=== PATIENT | female | born 1985 | race Caucasian/White ===

== ENCOUNTER 2018-05-07 17:02 | Emergency (ER) | payer OTHER ==
--- NOTE | 2018-05-07 17:43 | ED Physician Documentation ---
PD HPI ABD PAIN - Stated complaint Stated Complaint: CHEST/ABD PX - Chief complaint Chief Complaint: Abd Pain - History obtained from History obtained from: Patient - History of Present Illness Timing - onset: How many hours ago (few), Today Timing - duration: Hours Timing - details: Abrupt onset, Still present Quality: Cramping, Aching, Pain Location: RUQ, Epigastric Radiation: Upper back Improved by: No: Vomiting Worsened by: Eating Associated symptoms: Nausea, Vomiting, Chest pain (pain goes up into lower substernal area.). No: Fever, Diarrhea, Melena Similar symptoms before: No diagnosis (evaluated with prior U/S and labs, saw GI and had HIDA scan which showed diminished function (40%), and so consider GB spasms/sludging. Also Rx with [id number].) Review of Systems Constitutional: denies: Fever, Chills Nose: denies: Rhinorrhea / runny nose, Congestion Throat: denies: Sore throat Cardiac: denies: Palpitations Respiratory: denies: Dyspnea, Cough GI: reports: Abdominal Pain, Nausea, Vomiting. denies: Abdominal Swelling, Diarrhea : denies: Dysuria, Frequency, Discharge Skin: denies: Rash Neurologic: reports: Generalized weakness. denies: Near syncope PD PAST MEDICAL HISTORY - Past Medical History Cardiovascular: None Respiratory: None Neuro: None Endocrine/Autoimmune: None - Present Medications Home Medications: Ambulatory Orders Medication Instructions Recorded Confirmed Etonogestrel [Nexplanon] 05/07/18 HYDROcod/ACETAM 5/325 [[place] 5/325] 1 tab PO Q6H PRN #12 tablet 05/07/18 Ondansetron Odt [Zofran] 4 mg TL Q6H PRN #15 tablet 05/07/18 - Allergies Allergies/Adverse Reactions: Allergies Allergy/AdvReac Type Severity Reaction Status Date / Time cefaclor [From [facility]] Allergy Unknown Verified 05/07/18 17:12 PD ED PE NORMAL - Vitals Vital signs reviewed: Yes - General General: Alert and oriented X 3, Well developed/nourished, Other (appears in pain and nauseated., holding emesis bag. ) - HEENT HEENT: PERRL (nonicteric), Ears normal, Pharynx benign - Neck Neck: Supple, no meningeal sign, No adenopathy - Cardiac Cardiac: RRR, No murmur - Respiratory Respiratory: Clear bilaterally - Abdomen Abdomen: Normal bowel sounds, Soft, Non distended, No organomegaly, Other ( tender with guarding epigastric and RUQ areas. Lower abd not tender. ) - Female Female : Deferred - Rectal Rectal: Deferred - Back Back: No CVA TTP - Derm Derm: Normal color, Warm and dry - Extremities Extremities: No deformity, No tenderness to palpate, Normal ROM s pain, No edema , No calf tenderness / cord - Neuro Neuro: Alert and oriented X 3, No motor deficit, Normal speech Results - Vitals Vitals: Vital Signs - 24 hr 05/07/18 05/07/18 17:06 20:53 Temperature 36.1 C L Heart Rate 72 86 Respiratory 16 16 Rate Blood Pressure 127/84 H 99/69 O2 Saturation 98 99 Oxygen O2 Source Room air - Labs Labs: Laboratory Tests 05/07/18 05/07/18 05/07/18 17:25 17:25 17:45 WBC 10.9 H RBC 4.48 Hgb 12.5 Hct 38.3 MCV 85.5 MCH 27.9 MCHC 32.6 RDW 13.4 Plt Count 225 MPV 9.4 Neut # (Auto) 8.8 H Lymph # (Auto) 1.3 L [place] # (Auto) 0.7 Eos # (Auto) 0.0 Baso # (Auto) 0.0 Absolute Nucleated RBC 0.01 Nucleated RBC % 0.1 Sodium 138 Potassium 3.9 Chloride 105 Carbon Dioxide 27 Anion Gap 6.0 BUN 20 Creatinine 0.9 Estimated GFR (MDRD) 73 L Glucose 86 POC Whole Bld Glucose Calcium 9.1 Total Bilirubin 1.4 H AST 91 H ALT 121 H Alkaline Phosphatase 133 H Total Protein 8.2 Albumin 4.0 Globulin 4.2 Albumin/Globulin Ratio 1.0 Lipase 32 Urine Color YELLOW Urine Clarity CLEAR Urine pH 6.0 Ur Specific [place] >=1.030 H Urine Protein TRACE Urine Glucose (UA) NEGATIVE Urine Ketones 15 H Urine Occult Blood NEGATIVE Urine Nitrite NEGATIVE Urine Bilirubin SMALL H Urine Urobilinogen 0.2 (NORMAL) Ur Leukocyte Esterase NEGATIVE Ur Microscopic Review NOT INDICATED Urine Culture Comments NOT INDICATED Urine HCG, Qual NEGATIVE 05/07/18 20:58 WBC RBC Hgb Hct MCV MCH MCHC RDW Plt Count MPV Neut # (Auto) Lymph # (Auto) [place] # (Auto) Eos # (Auto) Baso # (Auto) Absolute Nucleated RBC Nucleated RBC % Sodium Potassium Chloride Carbon Dioxide Anion Gap BUN Creatinine Estimated GFR (MDRD) Glucose POC Whole Bld Glucose 82 Calcium Total Bilirubin AST ALT Alkaline Phosphatase Total Protein Albumin Globulin Albumin/Globulin Ratio Lipase Urine Color Urine Clarity Urine pH Ur Specific [place] Urine Protein Urine Glucose (UA) Urine Ketones Urine Occult Blood Urine Nitrite Urine Bilirubin Urine Urobilinogen Ur Leukocyte Esterase Ur Microscopic Review Urine Culture Comments Urine HCG, Qual - Rads (name of study) RUQ US Radiology: Prelim report reviewed (normal wall thickness and CBD diameter. No acute process. ) PD MEDICAL DECISION MAKING - ED course Complexity details: considered differential (she says had HIDA showing diminished function (40%) and no history of stones, but has bump on LFTs/alk phos on bloods so wanted to ensure no bile duct enlargement nor GB wall thickening. This was okay on U/S. Consider if she had some ductal sludging, now resolved. And she is feeling better. Consider gastritis as well with mild LFT bump due to vomiting. ), d/w patient - Sepsis Event Vital Signs: Vital Signs - 24 hr 05/07/18 05/07/18 17:06 20:53 Temperature 36.1 C L Heart Rate 72 86 Respiratory 16 16 Rate Blood Pressure 127/84 H 99/69 O2 Saturation 98 99 Oxygen O2 Source Room air Departure - Departure Disposition: 01 Home, Self Care Clinical Impression: Abdominal pain Qualifiers: Abdominal location: upper abdomen, unspecified Qualified Code(s): R10.10 - Upper abdominal pain, unspecified Condition: Stable Record reviewed to determine appropriate education?: Yes Instructions: ED Abdominal Pain Gallstone Poss, ED Gastritis Follow-Up: [facility] [Provider Group] Prescriptions: HYDROcod/ACETAM 5/325 [[place] 5/325] 1 tab PO Q6H PRN #12 tablet PRN Reason: Pain Ondansetron Odt [Zofran] 4 mg TL Q6H PRN #15 tablet PRN Reason: Nausea / Vomiting Comments: I think your stomach pain may be mostly an irritated stomach called gastritis. Take the acid reducing medicine you have at home regularly for the next 1-2 weeks. You can add Maalox or Mylanta if needed for pains. Ondansetron if needed for nausea. Add Tylenol or hydrocodone if needed for pain. Alternatively your pain may be coming from gallbladder spasms but on ultrasound there is no stones nor wall thickening nor signs of inflammation of it at this time. It still could have had a spasm episode. Follow-up with your primary care and/or GI regarding further treatments. Forms: Activity restrictions Discharge Date/Time: 05/07/18 21:39
[2018-05-07 17:51] LABS: GLUCOSE, URINE (UA) NEGATIVE (NEGATIVE); KETONES,URINE (UA) 15 mg/dL (NEGATIVE); LEUKOCYTE ESTERASE, URINE NEGATIVE (NEGATIVE); NITRITE,URINE NEGATIVE (NEGATIVE); OCCULT BLOOD,URINE NEGATIVE (NEGATIVE); PROTEIN,URINE TRACE mg/dL (NEGATIVE); UROBILINOGEN,URINE 0.2 (NORMAL) E.U./dL (NORMAL)
[2018-05-07] MEDS ORDERED: LIDOCAINE VISCOUS 2% 15 ML UDC MM STA (18:00)
[2018-05-07] MEDS ORDERED: KETOROLAC 60 MG/2 ML VIAL IVP STA (18:00)
[2018-05-07] MEDS ORDERED: ONDANSETRON 4 MG/2 ML VIAL IVP STA ×2 (18:00→20:54)
[2018-05-07] MEDS ORDERED: SODIUM CHLORIDE 0.9% 1,000 ML IV ONE (18:00)
[2018-05-07] MEDS ORDERED: MAG HYDROX/AL HYDROX/SIMETH 30 ML UDC PO STA (18:00)
[2018-05-07] MEDS ORDERED: FAMOTIDINE 20 MG/50 ML 50 ML IV ONE (18:01)
[2018-05-07 18:03] LABS: BILIRUBIN,URINE SMALL (NEGATIVE); CLARITY,URINE CLEAR (CLEAR); HCG UR QUAL NEGATIVE; ICTOTEST,URINE POSITIVE
[2018-05-07 18:39] LABS: BASOPHILS % (AUTO) 0.2 %; EOSINOPHILS % (AUTO) 0.2 %; HGB - HEMOGLOBIN 12.5 g/dL (12.0-16.0); LYMPHOCYTES # (AUTO) 1.3 10^3/uL (1.5-3.5); LYMPHOCYTES % (AUTO) 12.3 %; MEAN CORPUSCULAR HEMOGLOBIN 27.9 pg (27.0-31.0); MEAN CORPUSCULAR HGB CONC 32.6 g/dL (32.0-36.0); MEAN CORPUSCULAR VOLUME 85.5 fL (81.0-99.0); MEAN PLATELET VOLUME 9.4 fL (7.9-10.8); MONOCYTES # (AUTO) 0.7 10^3/uL (0.0-1.0); MONOCYTES % (AUTO) 6.5 %; NEUTROPHILS # (AUTO) 8.8 10^3/uL (1.5-6.6); NEUTROPHILS % (AUTO) 80.8 %; PLT - PLATELET COUNT 225 10^3/uL (130-450); RED BLOOD COUNT 4.48 10^6/uL (4.20-5.40); RED CELL DISTRIBUTION WIDTH 13.4 % (12.0-15.0); WHITE BLOOD COUNT 10.9 x10^3/uL (4.8-10.8)
[2018-05-07 18:40] LABS: BILIRUBIN,TOTAL 1.4 mg/dL (0.2-1.0); CALCIUM 9.1 mg/dL (8.5-10.3); CREATININE 0.9 mg/dL (0.4-1.0); TOTAL PROTEIN 8.2 g/dL (6.7-8.2)
[2018-05-07 20:53] VITALS: BP 99/69
[2018-05-07] MEDS ORDERED: HYDROcod/ACET 5/325 Prepack 4 PO STA (20:54)
[2018-05-07] MEDS ORDERED: ONDANSETRON ODT 4 MG Prepack 2 TL PRN (20:54)
--- NOTE | 2018-05-08 07:30 | Ultrasound Report ---
Procedure Date: 05/07/2018 Accession Number: [id number] / [id number] Procedure: US - Abdomen Limited CPT Code: FULL RESULT: EXAM: ABDOMEN ULTRASOUND LIMITED, RUQ EXAM DATE: 05/07/2018 08:39 PM. CLINICAL HISTORY: Upper abdominal pain. COMPARISON: None. TECHNIQUE: Real-time scanning was performed with static images obtained. FINDINGS: Liver: Normal in size and echotexture. The liver measures 15.0 cm. Main portal vein flow: Hepatopetal. Gallbladder: The gallbladder wall is borderline thickened. There is no gallstones, pericholecystic fluid, or positive sonographic Barrios sign. Biliary System: CBD measures 4 mm. No intrahepatic or extrahepatic ductal dilatation. Other: None. IMPRESSION: No acute intra-abdominal abnormality definitively seen including no definitive evidence for cholecystitis or biliary dilation. RADIA
== END 2018-05-07 21:39 | disposition home or self-care (01) ==
LOC: ED 17:02
DX: R10.11 Right upper quadrant pain (principal)
CPT/HCPCS: 36415; 76705; 80053; 81003; 81025; 83690; 85025; 93005; 96365; 96375; 96376; 99283; A9270; 81001; 87086

== ENCOUNTER 2018-05-09 16:20 | Day surgery (SDC) | payer OTHER ==
[~2018-05-09 16:20] MED LIST: DEXAMETHASONE 4 MG/ML VIAL IVP ONE; GLYCOPYRROLATE 1 MG/5 ML VIAL IVP ONE; KETOROLAC 30 MG/ML VIAL IVP ONE; LIDOCAINE-MPF 2% 5 ML VIAL IM ONE; MIDAZOLAM 2 MG/2 ML VIAL IVP ONE; NEOSTIGMINE 1 MG/1 ML 10 ML MDV IVP ONE; ONDANSETRON 4 MG/2 ML VIAL IVP ONE; PROPOFOL 200 MG/20 ML VIAL IVP ONE; ROCURONIUM 50 MG/5 ML VIAL IVP ONE; fentaNYL 100 MCG/2 ML VIAL IVP ONE
[2018-05-09 17:13] LABS: BASOPHILS % (AUTO) 0.5 %; EOSINOPHILS # (AUTO) 0.1 10^3/uL (0.0-0.7); EOSINOPHILS % (AUTO) 1.7 %; HGB - HEMOGLOBIN 12.5 g/dL (12.0-16.0); LYMPHOCYTES # (AUTO) 1.7 10^3/uL (1.5-3.5); MEAN CORPUSCULAR HGB CONC 32.8 g/dL (32.0-36.0); MEAN CORPUSCULAR VOLUME 85.2 fL (81.0-99.0); MEAN PLATELET VOLUME 9.2 fL (7.9-10.8); MONOCYTES # (AUTO) 0.5 10^3/uL (0.0-1.0); MONOCYTES % (AUTO) 8.2 %; NEUTROPHILS # (AUTO) 3.4 10^3/uL (1.5-6.6); NEUTROPHILS % (AUTO) 59.6 %; PLT - PLATELET COUNT 221 10^3/uL (130-450); RED BLOOD COUNT 4.46 10^6/uL (4.20-5.40); RED CELL DISTRIBUTION WIDTH 13.1 % (12.0-15.0); WHITE BLOOD COUNT 5.7 x10^3/uL (4.8-10.8)
[2018-05-09 17:26] LABS: ALBUMIN 3.9 g/dL (3.2-5.5); BILIRUBIN,TOTAL 3.7 mg/dL (0.2-1.0); CREATININE 0.7 mg/dL (0.4-1.0); TOTAL PROTEIN 7.9 g/dL (6.7-8.2)
[2018-05-09 17:40] LABS: HCG,QUALITATIVE BLOOD NEGATIVE
[2018-05-09 19:08] LABS: GLUCOSE, URINE (UA) NEGATIVE (NEGATIVE); KETONES,URINE (UA) NEGATIVE (NEGATIVE); LEUKOCYTE ESTERASE, URINE NEGATIVE (NEGATIVE); NITRITE,URINE NEGATIVE (NEGATIVE); OCCULT BLOOD,URINE NEGATIVE (NEGATIVE); PROTEIN,URINE NEGATIVE (NEGATIVE); UROBILINOGEN,URINE 2 E.U./dL (NORMAL)
[2018-05-09 19:11] LABS: BILIRUBIN,URINE MODERATE (NEGATIVE); CLARITY,URINE CLEAR (CLEAR); HCG UR QUAL NEGATIVE; ICTOTEST,URINE POSITIVE
[2018-05-09] MEDS ORDERED: SODIUM CHLORIDE 0.9% 1,000 ML IV ONE (19:15)
[2018-05-09] MEDS ORDERED: ONDANSETRON 4 MG/2 ML VIAL IVP STA (19:15)
[2018-05-09] MEDS ORDERED: HYDROmorphone 1 MG/ML CARPUJECT IVP STA ×2 (19:16→22:12)
[2018-05-09] MEDS ORDERED: IOPAMIDOL-300 50 ML VIAL ONE (19:38)
[2018-05-09] MEDS ORDERED: IOPAMIDOL-300 100 ML VIAL ONE (20:43)
[2018-05-09] MEDS ORDERED: IOPAMIDOL-300 50 ML VIAL PO ONE (21:00)
[2018-05-09] MEDS ORDERED: IOPAMIDOL-300 100 ML VIAL IVP ONE (21:01)
[2018-05-09] MEDS ORDERED: PROMETHAZINE INJ 25 MG in SODIUM CHLORIDE 0.9% 50 ML IV STA (21:49)
[2018-05-09] MEDS ORDERED: PIPERACILLIN/TAZOBACTAM 4.5 GM in SODIUM CHLORIDE 0.9% MINIBAG 100 ML IV STA (21:49)
--- NOTE | 2018-05-09 21:51 | CT Report ---
Procedure Date: 05/09/2018 Accession Number: [id number] / [id number] Procedure: CT - Abdomen/Pelvis W/ CPT Code: FULL RESULT: EXAM: CT ABDOMEN AND PELVIS EXAM DATE: 05/09/2018 08:46 PM. CLINICAL HISTORY: Abdominal pain. COMPARISONS: Right upper quadrant ultrasound 05/07/2018. TECHNIQUE: Routine helical CT imaging was performed through the abdomen and pelvis. IV contrast: 100 mL Isovue-300. Enteric contrast: Present. Reconstructions: Coronal and sagittal. In accordance with CT protocol optimization, one or more of the following dose reduction techniques were utilized for this exam: automated exposure control, adjustment of mA and/or KV based on patient size, or use of iterative reconstructive technique. FINDINGS: Lung Bases: Unremarkable. Liver: Normal size and surface contour. Minimal focal fatty infiltration along the falciform ligament. There is mild hyperenhancement about the gallbladder fossa (for example 30). Gallbladder/Bile Ducts: Gallbladder wall appears mildly thickened and mildly hyperenhancing. There may be trace pericholecystic fluid. No calcified stones. No biliary ductal dilatation. Spleen: Normal. Pancreas: Normal. Adrenal Glands: Normal. Kidneys: Normal. No masses or hydronephrosis. Peritoneal Cavity/Bowel: Trace pelvic free fluid may be physiologic. No loculated fluid to suggest abscess. No extraluminal gas. No evidence of bowel obstruction or inflammation. Enteric contrast did not reached the colon by the time of the exam. Stool burden is significantly above average suggesting constipation. The appendix is well-visualized and normal. No abnormally enlarged lymph nodes. Pelvic Organs: Urinary bladder is unremarkable. Uterus is anteflexed and within normal limits. No adnexal mass. Vasculature: No aneurysms or other significant abnormality. Bones: There is straightening and reversal of the typical lumbar lordosis. No acute osseous abnormality or suspicious focal osseous lesion. Other: Tiny fat-containing periumbilical hernia. No bowel containing abdominal wall hernia. IMPRESSION: 1. Findings concerning for acute cholecystitis although ultrasound did not demonstrate cholelithiasis. The gallbladder is distended with mild wall thickening and there is hyperenhancement of the liver at the gallbladder fossa suggesting gallbladder inflammation. Consider surgical consultation and nuclear medicine HIDA scan for further evaluation. 2. Otherwise unremarkable exam with the exception of above average stool burden suggesting constipation. RADIA The above findings were discussed with Scott Doe by Dr. Gilberto Plata at 21:46 hrs on 05/09/18.
--- NOTE | 2018-05-09 22:13 | ED Physician Documentation ---
History of Present Illness - Stated complaint Stated Complaint: UPPER AB PX - Chief complaint Chief Complaint: Abd Pain - History obtained from History obtained from: Patient - Additonal information Additional information: 32-year-old female Presents the emergency department with increasing epigastric pain which has progressively worsened. No triggering factors. No relieving factors. The symptoms are described as severe. The patient recently moved to the area and recently had a HIDA scan which showed an ejection fraction of 40%. The patient denies fevers or chills. Positive for nausea and vomiting. No other associated symptoms Review of Systems Constitutional: reports: Fatigue. denies: Fever, Chills Eyes: denies: Discharge Nose: denies: Congestion Throat: denies: Sore throat Cardiac: denies: Chest pain / pressure Respiratory: denies: Dyspnea GI: reports: Abdominal Pain, Nausea, Vomiting : denies: Dysuria Skin: denies: Rash Musculoskeletal: denies: Neck pain, Back pain Neurologic: denies: Generalized weakness Immunocompromised: denies: Chemotherapy PD PAST MEDICAL HISTORY - Past Medical History Cardiovascular: None Respiratory: None Neuro: None Endocrine/Autoimmune: None - Past Surgical History Past Surgical History: No - Present Medications Home Medications: Ambulatory Orders Medication Instructions Recorded Confirmed Etonogestrel [Nexplanon] 05/07/18 HYDROcod/ACETAM 5/325 [[place] 5/325] 1 tab PO Q6H PRN #12 tablet 05/07/18 Ondansetron Odt [Zofran] 4 mg TL Q6H PRN #15 tablet 05/07/18 - Allergies Allergies/Adverse Reactions: Allergies Allergy/AdvReac Type Severity Reaction Status Date / Time cefaclor [From [facility]] Allergy Unknown Verified 05/09/18 16:47 - Social History Does the pt smoke?: No Smoking Status: Never smoker PD ED PE NORMAL - General General: Alert and oriented X 3, Other (The patient appears uncomfortable) - HEENT HEENT: Atraumatic, PERRL, EOMI, Ears normal - Neck Neck: Supple, no meningeal sign - Cardiac Cardiac: RRR, Strong equal pulses - Respiratory Respiratory: No respiratory distress - Abdomen Abdomen: Normal bowel sounds, Non distended. No: Non tender (The patient has tenderness to palpation in the Epigastrium) - Derm Derm: Normal color - Extremities Extremities: No deformity, No edema - Neuro Neuro: Alert and oriented X 3, No motor deficit - Psych Psych: Normal mood Results - Vitals Vitals: Vital Signs - 24 hr 05/09/18 05/09/18 16:45 19:46 Temperature 36.4 C L Heart Rate 67 67 Respiratory 20 18 Rate Blood Pressure 129/77 125/87 H O2 Saturation 100 98 Oxygen O2 Source Room air - Labs Labs: Laboratory Tests 05/09/18 05/09/18 05/09/18 17:07 17:07 17:07 WBC 5.7 RBC 4.46 Hgb 12.5 Hct 38.0 MCV 85.2 MCH 28.0 MCHC 32.8 RDW 13.1 Plt Count 221 MPV 9.2 Neut # (Auto) 3.4 Lymph # (Auto) 1.7 [place] # (Auto) 0.5 Eos # (Auto) 0.1 Baso # (Auto) 0.0 Absolute Nucleated RBC 0.00 Nucleated RBC % 0.0 Sodium 137 Potassium 3.4 L Chloride 102 Carbon Dioxide 29 Anion Gap 6.0 BUN 14 Creatinine 0.7 Estimated GFR (MDRD) 98 Glucose 86 Calcium 9.0 Total Bilirubin 3.7 H AST 294 H ALT 376 H Alkaline Phosphatase 159 H Total Protein 7.9 Albumin 3.9 Globulin 4.0 Albumin/Globulin Ratio 1.0 Lipase 34 Serum HCG, Qual NEGATIVE Urine Color Urine Clarity Urine pH Ur Specific [place] Urine Protein Urine Glucose (UA) Urine Ketones Urine Occult Blood Urine Nitrite Urine Bilirubin Urine Urobilinogen Ur Leukocyte Esterase Ur Microscopic Review Urine Culture Comments Urine HCG, Qual 05/09/18 18:54 WBC RBC Hgb Hct MCV MCH MCHC RDW Plt Count MPV Neut # (Auto) Lymph # (Auto) [place] # (Auto) Eos # (Auto) Baso # (Auto) Absolute Nucleated RBC Nucleated RBC % Sodium Potassium Chloride Carbon Dioxide Anion Gap BUN Creatinine Estimated GFR (MDRD) Glucose Calcium Total Bilirubin AST ALT Alkaline Phosphatase Total Protein Albumin Globulin Albumin/Globulin Ratio Lipase Serum HCG, Qual Urine Color DARK YELLOW Urine Clarity CLEAR Urine pH 7.0 Ur Specific [place] 1.015 Urine Protein NEGATIVE Urine Glucose (UA) NEGATIVE Urine Ketones NEGATIVE Urine Occult Blood NEGATIVE Urine Nitrite NEGATIVE Urine Bilirubin MODERATE H Urine Urobilinogen 2 H Ur Leukocyte Esterase NEGATIVE Ur Microscopic Review NOT INDICATED Urine Culture Comments NOT INDICATED Urine HCG, Qual NEGATIVE - Rads (name of study) CT abdomen/pelvis Radiology: Final report received, See rad report (Acute cholecystitis) PD MEDICAL DECISION MAKING - ED course ED course: The patient still is quite uncomfortable and the findings were discussed with the on-call general surgeon. He recommends admission to the hospital for further management of the patient's acute symptoms. The findings and plan were discussed with the patient understands and agrees to the plan - Sepsis Event Vital Signs: Vital Signs - 24 hr 05/09/18 05/09/18 16:45 19:46 Temperature 36.4 C L Heart Rate 67 67 Respiratory 20 18 Rate Blood Pressure 129/77 125/87 H O2 Saturation 100 98 Oxygen O2 Source Room air Departure - Departure Disposition: ED Place in Observation Clinical Impression: Acute cholecystitis Condition: Good
--- NOTE | 2018-05-09 23:23 | CONSULTATION NOTE ---
Referring Provider Name of Referring Provider:: Dr. Scott Doe Consult Date: 05/09/18 Chief Complaint - Chief Complaint Chief Complaint: Persistent RUQ pain History of Present Illness - Admitted From Admitted From:: [facility] ED - History Obtained From Records Reviewed: Yes History obtained from: Patient Exam Limitations: None - History of Present Illness HPI Comment/Other: The patient is a very pleasant 32 year old female who is evaluated in Bed1 at [facility] ED. The patient has been thought to have biliary disease for quite some time in fact having a CCK HIDA in [place] before she moved here. Reportedly the CCK HIDA showed an ejection fraction of 40% which is normal but is the lower part of normal. Additionally an ultrasound was done that showed some sludge but no stones. The patient had similar symptoms a couple days ago for which she was seen in the emergency room and sent home after her symptoms improved. At that time it is thought that her symptoms occurred after eating a TV dinner. She and her family have been living in a hotel while there is been waiting for a house to open up. Over the past 48 hours or so her symptoms have worsened with no break in the pain. Additionally this pain has been accompanied by nausea and vomiting. She is rather scared to eat anything for fear of causing the pain. She denies any melena hematochezia or hematemesis. Now the only thing that helps the pain is Dilaudid. Zofran seems to be helping with nausea and vomiting. History - Past Medical History Cardiovascular: reports: None Respiratory: reports: None Neuro: reports: None Endocrine/Autoimmune: reports: None Meds/Allgy - Home Medications Home Medications: Ambulatory Orders Medication Instructions Recorded Confirmed Etonogestrel [Nexplanon] 05/07/18 HYDROcod/ACETAM 5/325 [[place] 5/325] 1 tab PO Q6H PRN #12 tablet 05/07/18 Ondansetron Odt [Zofran] 4 mg TL Q6H PRN #15 tablet 05/07/18 - Allergies Allergies/Adverse Reactions: Allergies Allergy/AdvReac Type Severity Reaction Status Date / Time cefaclor [From [facility]] Allergy Unknown Verified 05/09/18 16:47 Review of Systems - Constitutional Constitutional: denies: Fatigue, Fever, Chills, Malaise - Eyes Eyes: denies: Pain - Ears, Nose & Throat Ears, Nose & Throat: denies: Ear pain - Cardiovascular Cariovascular: denies: Irregular heart rate - Respiratory Respiratory: denies: Cough, Sputum production, Wheezing - Gastrointestinal Gastrointestinal: reports: Abdominal pain, Nausea, Vomiting - Integumentary Integumentary: denies: Rash - Neurological Neurological: denies: General weakness, Focal weakness Exam - Vital Signs Reviewed Vital Signs: Yes Vital Signs: Vital Signs x48h Temp Pulse Resp BP Pulse Ox 05/09/18 22:35 63 18 94/68 99 05/09/18 19:46 67 18 125/87 H 98 05/09/18 16:45 36.4 C L 67 20 129/77 100 - Physical Exam General Appearance: positive: Mild distress (Due to abdominal pain.) Eyes Bilateral: positive: No lid inflammation, Conjunctivae nml, No scleral icterus ENT: positive: Dry mucous membranes Neck: positive: Trachea midline Respiratory: positive: Chest non-tender, No respiratory distress, Breath sounds nml Cardiovascular: positive: Regular rate & rhythm, No murmur, No gallop Abdomen: positive: Nml bowel sounds, Tenderness (In the RUQ.) Skin: positive: Color nml Extremities: positive: Non-tender, Full ROM, Nml appearance Neurologic/Psychiatric: positive: Oriented x3 Conclusion/Plan - Diagnosis Diagnosis: Acute cholecystitis - Plan Plan: Laparoscopic cholecystectomy, possible open cholecystectomy, possible intraoperative cholangiogran, possible common bile duct exploration. The indications, procedure, alternatives including no surgery, ingestion of Actigall , possible risks including infection (deep or superficial), bleeding requiring transfusion (with all of its risks), common bile duct injury requring repair and additional surgery, and were fully explained to the patient and all questions answered. I also explained the pathophysiology. I explained that following the surgery I did not want her lifting anything over 15 pounds for 6 weeks to allow for optimal healing and to decrease the likelihood that a hernia would occur. All questions were fully answered. Verbal and written consent was obtained. The patient, in preparation for surgery will be nothing by mouth , and receive additional Zosyn with induction. A cephalosporin was not used as she is allergic.I asked her to contact me with any surgical questions and her concerns and she stated that she would. I asked her to let me know if there is any way we can make her stay at [facility] more comfortable and she stated that she would let me know. The plan is to do this operation as an outpatient procedure and to discharge her home following the procedure. 45 minutes of [id number] time spent with the patient, over 80% in discussion, coordination of her care, and completion of the requisite paperwork - Lab Results Lab results reviewed: Yes Fish Bones: 05/09/18 17:07 05/09/18 17:07 - Diagnostic Imaging Results Diagnostic Imaging Results: positive: Final report reviewed, Read independently
[2018-05-09] MEDS ORDERED: PIPERACILLIN/TAZOBACTAM 3.375 GM in SODIUM CHLORIDE 0.9% MINIBAG 100 ML IV SCH (23:45)
[2018-05-10 00:49] VITALS: BP 110/64
[2018-05-10] MEDS: D5NS W/20 MEQ KCL 1,000 ML IV SCH ×3 (01:08→18:58)
[2018-05-10] MEDS ORDERED: SODIUM CHLORIDE FLUSH 0.9% 10 ML SYRINGE ONE (01:12)
[2018-05-10] MEDS ORDERED: PIPERACILLIN/TAZOBACTAM 3.375 GM in SODIUM CHLORIDE 0.9% MINIBAG 100 ML IV SCH (02:00)
[2018-05-10] MEDS: HYDROmorphone 1 MG/ML CARPUJECT IVP PRN ×5 (03:44→12:10)
[2018-05-10] MEDS: PIPERACILLIN/TAZOBACTAM 3.375 GM in SODIUM CHLORIDE 0.9% MINIBAG 100 ML IV SCH ×2 (08:17→18:59)
[2018-05-10] MEDS ORDERED: BUPIVACAINE 0.5% PF 30 ML VIAL ONE (09:38)
[2018-05-10] MEDS ORDERED: IOTHALAMATE MEGLUMINE 50 ML VIAL ONE (13:50)
[2018-05-10] MEDS ORDERED: LACTATED RINGERS 1,000 ML IV ONE ×3 (13:53→17:10)
--- NOTE | 2018-05-10 15:54 | OPERATIVE REPORT ---
Operative Report - General Admit Date: 05/09/18 Planned Procedure: Laparoscopic cholecystectomy, possible open cholecystectomy, possible commo Pre-Op Diagnosis: Acute cholecystitis Procedure Performed: Laparoscopic cholecystectomy with attempted intraoperative cholangiography, umbilical herniorrhaphy Post Op Diagnosis: Same - Procedure Note Primary Surgeon: Gilberto Elliott MD Anesthesia Provider: Ricardo Benjamin CRNA Anesthesia Technique: General ET tube, Local (30 mL of half percent Marcaine) IV Fluids (mL): 1,400 Estimated Blood Loss (mL): 10 Urine Output (mL): 400 Complications: None. - Other Other Information/Narrative: OPERATIVE DESCRIPTION/REPORT: After verbal and written informed consent was obtained detailing the risks of infection, bleeding requiring transfusion with its risks, common bile duct injury, and , and after I met with the patient confirming the surgery and the site of the surgery and after initialing the site of the surgery with a surgical marker, the patient was brought to the operative suite and placed supine on the operating table. Great care was taken to avoid pressure points to prevent pressure necrosis or nerve injury. Monitoring devices were applied along with TEDs and pneumatic compressive stockings (to prevent DVT). The patient received preoperative antibiotics for surgical prophylaxis. Ricardo Benjamin sedated and anesthetized the patient for the entire procedure. The patient was prepped and draped in the usual sterile manner. A "time in" then confirmed that the patient was identified with 3 identifiers (name, date and medical record number), the history and physical was in the chart, the signed consent confirming the procedure was in the chart, the patient was in the correct position, the aforementioned prophylactic measures were in place or given, we had the correct personnel and equipment to complete the procedure and that anesthesia, surgery and nursing were given an opportunity to express any concerns. With the agreement of everyone in the room, we proceeded with the operation. A 2 cm transverse intra-umbilical midline incision was made avoiding the piercing. A small umbilical hernia was noted and the fascial defect was widened with Metzenbaum scissors. This defect was used to gain entry into the abdomen. A 12 mm blunt tipped balloon tipped Taisha cannula was placed in the fascial opening and the balloon inflated in order to occlude the fascial opening. The pneumoperitoneum was then established using carbon dioxide insufflation to a steady state pressure of 15 mmHg. The remaining trocars were then placed into the abdomen under direct vision of the 30 degree laparoscope taking care to make the incisions along Langers lines , spreading the subcutaneous tissues with a tonsil clamp, and confirming the entry site by depressing the abdominal wall prior to insertion of the trocar. A total of three other trocars were placed. The first was a 5 mm trocar in the upper midline position. The second was a 5 mm trocar placed in the anterior axillary line approximately 3 cm above the anterior superior iliac spine. The third was a 5 mm trocar placed to bisect the distance between the second and upper midline trocar. All of the trocars were placed without difficulty. The patient was then placed in reverse Trendelenburg position and was rotated slightly to their left. The gallbladder was very thin walled and distended so that it could not be grasped. As such, I drained with laparoscopic needle and a 30 mL syringe obtaining thick motor oil like bile so that the distention resolved and the wall could be grasped.The gallbladder was then grasped through the second and third trocars and retracted cephalad toward the right shoulder. A laparoscopic dissector was then placed through the upper midline cannula fitted with a title insurance examiner, and the structures within the triangle of Calot were meticulously dissected free. A Cortes clamp was then inserted through the medial right subcostal port and the distal gallbladder clamped and the needle inserted just above the origin of the cystic duct. There was return of bile and easy flush of saline. Half strength dye was then injected and a cholangiogram was obtained showing leakage of the dye each time. The needle was replaced twice and two additional picutres revealed a dye leak each time. Unable to get a picture of the common bile duct , the cholangiocathter and the Cortes clamp were removed and the cystic duct was doubly clipped proximally and distally. The duct was divided between the clips. The clips were carefully placed to avoid occluding the juncture with the common bile duct. The cystic artery was found medially and slightly posterior to the cystic duct. It was carefully dissected free from its surrounding tissues. A laparoscopic clip licensing director was introduced through the upper midline cannula and used to doubly ligate the cystic artery, proximally and distally. The artery was divided between the clips. After the cystic duct and artery were transected, the gallbladder was dissected from the liver bed using Bovie electrocautery. Prior to complete dissection of the gallbladder from the liver the peritoneal cavity was copiously irrigated with saline and the operative field was examined for persistent blood or bile leaks of which there were none. After complete detachment of the gallbladder from the liver, the video laparoscope was placed through the upper midline 5 mm cannula. The gallbladder was placed in an endopouch that had been inserted in the umbilical port and the purse string suture pulled tight. All 5 mm port sites were injected with 0.5% marcaine under direct vision at the peritoneal level, fascial level and skin level. The Taisha cannula was removed and the endopouch containing the gallbladder was removed from the abdomen. Following gallbladder removal, the remaining carbon dioxide was expelled from the abdomen. The fascia at the umbilicus was reapproximated using 2 figure-of- eight 0 Vicryl sutures thus repairing the umbilical hernia. The skin at each port site was approximated using a subcuticular 4-0 Monocryl. The surgical count of instruments, needles and sponges was reported as correct twice. Mastisol, Steri-Strips and sterile surgical dressings were applied. The patient was then awakened from anesthesia, extubated, and having tolerated the procedure well, was transported to the recovery room. No complications were encountered. A "time out" confirmed the operation performed, the fluids given, the estimated blood loss and anesthesia, surgery and nursing were given an opportunity to express any concerns.
[2018-05-10] MEDS ORDERED: SODIUM CHLORIDE FLUSH 0.9% 10 ML SYRINGE IVP PRN (16:17)
[2018-05-10] MEDS ORDERED: ACETAMINOPHEN 1,000 MG/100 ML 100 ML IV ONE (17:17)
[2018-05-10] MEDS ORDERED: MORPHINE 2 MG/ML CARPUJECT ONE (17:39)
[2018-05-10] MEDS: oxyCOD/ACETAMIN 5 MG/325 MG TABLET PO PRN ×2 (18:37→22:58)
[2018-05-10] MEDS: SODIUM CHLORIDE FLUSH 0.9% 10 ML SYRINGE IVP SCH (18:39)
[2018-05-10] MEDS: HYDROmorphone 0.5 MG/0.5 ML SYRINGE IVP PRN (20:28)
--- NOTE | 2018-05-10 22:28 | XRAY Report ---
Procedure Date: 05/10/2018 Accession Number: [id number] / [id number] Procedure: XR - Chest 1 View X-Ray CPT Code: 64470 FULL RESULT: EXAM: CHEST RADIOGRAPHY EXAM DATE: 05/10/2018 09:39 PM. CLINICAL HISTORY: Chest pressure. COMPARISON: None. TECHNIQUE: 1 view. FINDINGS: Lungs/Pleura: Opacity in the left lower lung field. No pleural effusion seen. No pneumothorax. Mediastinum: Within exam limitations, the cardiomediastinal contour is normal. Other: None. IMPRESSION: 1. Opacity in the left lower lung field. There could be pneumonia or aspiration. RADIA
[2018-05-11] MEDS: HYDROmorphone 0.5 MG/0.5 ML SYRINGE IVP PRN ×2 (00:36→08:19)
[2018-05-11] MEDS: SODIUM CHLORIDE FLUSH 0.9% 10 ML SYRINGE IVP SCH ×3 (00:36→06:12)
[2018-05-11] MEDS: ONDANSETRON 4 MG/2 ML VIAL IVP PRN ×2 (00:49→06:11)
[2018-05-11] MEDS: PIPERACILLIN/TAZOBACTAM 3.375 GM in SODIUM CHLORIDE 0.9% MINIBAG 100 ML IV SCH ×2 (00:52→06:11)
[2018-05-11] MEDS: D5NS W/20 MEQ KCL 1,000 ML IV SCH (06:11)
[2018-05-11] MEDS: oxyCOD/ACETAMIN 5 MG/325 MG TABLET PO PRN ×2 (06:11→10:49)
[2018-05-11] MEDS ORDERED: HYDROmorphone 0.5 MG/0.5 ML SYRINGE IVP PRN (07:42)
[2018-05-11 07:55] LABS: HGB - HEMOGLOBIN 11.2 g/dL (12.0-16.0); MEAN CORPUSCULAR HEMOGLOBIN 28.3 pg (27.0-31.0); MEAN CORPUSCULAR HGB CONC 33.1 g/dL (32.0-36.0); MEAN CORPUSCULAR VOLUME 85.5 fL (81.0-99.0); MEAN PLATELET VOLUME 9.4 fL (7.9-10.8); RED BLOOD COUNT 3.97 10^6/uL (4.20-5.40); RED CELL DISTRIBUTION WIDTH 13.7 % (12.0-15.0); WHITE BLOOD COUNT 7.8 x10^3/uL (4.8-10.8)
[2018-05-11 08:03] LABS: ALBUMIN 3.2 g/dL (3.2-5.5); BILIRUBIN,TOTAL 3.1 mg/dL (0.2-1.0); CALCIUM 8.6 mg/dL (8.5-10.3); CREATININE 0.8 mg/dL (0.4-1.0); TOTAL PROTEIN 6.4 g/dL (6.7-8.2)
--- NOTE | 2018-05-11 13:13 | DISCHARGE SUMMARY ---
"Discharge Summary Admit Date: 05/09/18 Discharge Date: 05/11/18 Discharging Provider: Lexi Code Status: Attempt Resuscitation Condition at Discharge: Good Discharge Disposition: 01 Home, Self Care - DIAGNOSES Admission Diagnoses: Acute cholcystitis Discharge Diagnoses with Status of Each Condition: Removing her gallbladder removed the acute cholecystitis - HPI History of Present Illness: 32 year old female with short course of RUQ post-prandial pain. Radiographs and labs confirmed diagnosis. I was called by ED and admitted the patient in preparation for laparoscopic cholecystectomy which occurred 05/10/2018. I initially thought that patient should be able to go home postoperatively but her abdominal pain and chest pain that were only relieved by IV pain medications prevented her discharge yesterday. Improved today and can take oral pain meds. Cautioned to avoid constipation. - CONSULTS | PROCEDURES Consultations: Gilberto Elliott MD Procedures: Laparoscopic cholecystectomy with attempted IOC and umbilical herniorrhaphy on - ALLERGIES Allergies/Adverse Reactions: Allergies Allergy/AdvReac Type Severity Reaction Status Date / Time cefaclor [From Ceclor] Allergy Unknown Verified 05/09/18 16:47 - MEDICATIONS Home Medications: Ambulatory Orders Medication Instructions Recorded Confirmed Etonogestrel [Nexplanon] 68 mg SUBQ ONCE 05/07/18 05/10/18 - PHYSICAL EXAM AT DISCHARGE General Appearance: positive: No acute distress Eyes Bilateral: positive: No lid inflammation, Conjunctivae nml, No scleral icterus ENT: positive: No signs of dehydration Neck: positive: Trachea midline Respiratory: positive: Chest non-tender, No respiratory distress, Breath sounds nml Cardiovascular: positive: Regular rate & rhythm Abdomen: positive: Nml bowel sounds, Tenderness (Incisional only.) Skin: positive: Color nml Extremities: positive: Non-tender, Full ROM, Nml appearance Neurologic/Psychiatric: positive: Oriented x3 - LABS Result Diagrams: 05/11/18 07:42 05/11/18 07:42 - FOLLOW UP Follow Up: Gilberto Elliott MD in 7-10 days - TIME SPENT Time Spent in Discharge (Minutes): 40"
--- NOTE | 2018-05-11 13:16 | Discharge Plan ---
Discharge Plan Disposition: 01 Home, Self Care Condition: Good Diet: Regular Activity Restrictions: No lifting > 15 pounds for 6 weeks. Shower Restrictions: No Driving Restrictions: Yes (No driving on pain meds.) Weight Bearing: Full Weight Additional Instructions or Follow Up instructions: Prescriptions hand written yesterday. No Smoking: If you smoke, Please STOP! Call for help. Follow-up with: Amando Miramontes ARNP [Primary Care Provider] - Gilberto Elliott MD [Provider Admit Priv/Credential] -
== END 2018-05-11 13:40 | disposition home or self-care (01) ==
LOC: ED 16:20 → OBS 22:35 → SDS 22:35 → UNDOADMOB 22:35 → SDS 05-11 13:40 → UNDODISOB 05-11 13:40
PROVIDERS: ATTEND Surgery
PROC: 0FT44ZZ Resection of Gallbladder, Percutaneous Endoscopic Approach (ICD-10-PCS; principal; 2018-05-10 13:30)
DX: K81.2 Acute cholecystitis with chronic cholecystitis (principal); K42.9 Umbilical hernia without obstruction or gangrene
CPT/HCPCS: 36415; 71045; 74177; 80053; 81001; 81003; 81025; 83690; 84703; 85025; 85027; 87086; 96361; 96374; 96375; 96376; 99284

== ENCOUNTER 2018-05-16 13:57 | Outpatient (CLI) | payer OTHER ==
[2018-05-16 14:39] LABS: ALBUMIN 3.7 g/dL (3.2-5.5); BILIRUBIN,TOTAL 1.5 mg/dL (0.2-1.0)
== END 2018-05-16 13:58 | disposition home or self-care (01) ==
LOC: LAB 13:57
PROVIDERS: ATTEND Surgery
DX: Z90.49 Acquired absence of other specified parts of digestive tract (principal)
CPT/HCPCS: 36415; 82040; 82247; 84075; 84155; 84460

== ENCOUNTER 2018-06-19 14:45 | Emergency (ER) | payer OTHER ==
[2018-06-19 15:36] LABS: BASOPHILS % (AUTO) 0.3 %; EOSINOPHILS # (AUTO) 0.1 10^3/uL (0.0-0.7); EOSINOPHILS % (AUTO) 1.2 %; HGB - HEMOGLOBIN 12.4 g/dL (12.0-16.0); LYMPHOCYTES # (AUTO) 2.4 10^3/uL (1.5-3.5); LYMPHOCYTES % (AUTO) 23.7 %; MEAN CORPUSCULAR HEMOGLOBIN 28.4 pg (27.0-31.0); MEAN CORPUSCULAR HGB CONC 33.7 g/dL (32.0-36.0); MEAN CORPUSCULAR VOLUME 84.1 fL (81.0-99.0); MEAN PLATELET VOLUME 9.2 fL (7.9-10.8); MONOCYTES # (AUTO) 0.6 10^3/uL (0.0-1.0); MONOCYTES % (AUTO) 5.5 %; NEUTROPHILS # (AUTO) 7.1 10^3/uL (1.5-6.6); NEUTROPHILS % (AUTO) 69.3 %; PLT - PLATELET COUNT 199 10^3/uL (130-450); RED BLOOD COUNT 4.36 10^6/uL (4.20-5.40); RED CELL DISTRIBUTION WIDTH 14.6 % (12.0-15.0); WHITE BLOOD COUNT 10.2 x10^3/uL (4.8-10.8)
[2018-06-19 15:54] LABS: ALBUMIN 4.3 g/dL (3.2-5.5); ALBUMIN/GLOBULIN RATIO 1.1 (1.0-2.2); BILIRUBIN,TOTAL 0.9 mg/dL (0.2-1.0); CALCIUM 9.3 mg/dL (8.5-10.3); CREATININE 0.8 mg/dL (0.4-1.0); TOTAL PROTEIN 8.3 g/dL (6.7-8.2)
[2018-06-19 16:03] LABS: HCG,QUALITATIVE BLOOD NEGATIVE
[2018-06-19 17:12] LABS: BILIRUBIN,URINE NEGATIVE (NEGATIVE); GLUCOSE, URINE (UA) NEGATIVE (NEGATIVE); KETONES,URINE (UA) NEGATIVE (NEGATIVE); LEUKOCYTE ESTERASE, URINE NEGATIVE (NEGATIVE); NITRITE,URINE NEGATIVE (NEGATIVE); OCCULT BLOOD,URINE NEGATIVE (NEGATIVE); PH,URINE 6.5 PH (5.0-7.5); PROTEIN,URINE NEGATIVE (NEGATIVE); UROBILINOGEN,URINE 0.2 (NORMAL) E.U./dL (NORMAL)
[2018-06-19 17:13] LABS: CLARITY,URINE CLEAR (CLEAR)
[2018-06-19] MEDS ORDERED: ONDANSETRON 4 MG/2 ML VIAL IVP STA (17:26)
[2018-06-19] MEDS ORDERED: KETOROLAC 60 MG/2 ML VIAL IVP STA (17:26)
--- NOTE | 2018-06-19 17:35 | ED Physician Documentation ---
History of Present Illness - Stated complaint Stated Complaint: N/ABD PX/MONTH POST OP - Chief complaint Chief Complaint: General - History obtained from History obtained from: Patient - History of Present Illness Timing: Other (1 month ago) Pain level max: 7 Pain level now: 7 Improved by: nothing Worsened by: movement, palpation - Additonal information Additional information: States abd pain for 1 month s/p lap isabella. States had elevated LFT's and is scheduled for an ERCP in 1 month. States continued pain today. Not taking anything for pain. Had a CT scan 2 weeks ago at [facility]. No fevers. Worsening pain today Review of Systems Ten Systems: 10 systems reviewed and negative Constitutional: denies: Fever, Chills Nose: denies: Rhinorrhea / runny nose, Congestion Cardiac: denies: Palpitations Respiratory: denies: Cough GI: denies: Vomiting, Diarrhea, Hematemesis, Bloody / black stool : denies: Dysuria, Now EGA Skin: denies: Rash Musculoskeletal: denies: Neck pain, Back pain Neurologic: denies: Focal weakness, Numbness, Headache PD PAST MEDICAL HISTORY - Past Medical History Past Medical History: Yes Cardiovascular: None Respiratory: None Neuro: None, Migraines Endocrine/Autoimmune: None : None - Past Surgical History Past Surgical History: No 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, 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 HEENT: Tonsil/Adenoidectomy - Present Medications Home Medications: Ambulatory Orders Medication Instructions Recorded Confirmed Etonogestrel [Nexplanon] 68 mg SUBQ ONCE 05/07/18 05/10/18 Hyoscyamine Sulfate [Levsin-Sl] 0.125 mg SL Q4H PRN #20 tab.subl 06/19/18 oxyCODONE [Roxicodone] 5 mg PO Q4-6H PRN #10 tablet 06/19/18 - Allergies Allergies/Adverse Reactions: Allergies Allergy/AdvReac Type Severity Reaction Status Date / Time cefaclor [From [facility]] Allergy Unknown Verified 06/19/18 15:18 - Social History Does the pt smoke?: No Smoking Status: Never smoker PD ED PE NORMAL - Vitals Vital signs reviewed: Yes - General General: Alert and oriented X 3, No acute distress - HEENT HEENT: Moist mucous membranes - Neck Neck: Supple, no meningeal sign - Cardiac Cardiac: RRR - Respiratory Respiratory: No respiratory distress, Clear bilaterally - Abdomen Abdomen: Soft, Non distended, Other (diffuse TTP, no peritoneal signs. incisions are CDI without signs of infection) - Back Back: No CVA TTP, No spinal TTP - Derm Derm: Warm and dry, No rash - Extremities Extremities: No edema - Neuro Neuro: Alert and oriented X 3 - Psych Psych: Normal mood, Normal affect Results - Vitals Vitals: Vital Signs - 24 hr 06/19/18 06/19/18 15:13 19:00 Temperature 36.3 C L 36.4 C L Heart Rate 74 75 Respiratory 16 16 Rate Blood Pressure 105/79 122/76 O2 Saturation 100 100 Oxygen O2 Source Room air - Labs Labs: Laboratory Tests 06/19/18 06/19/18 06/19/18 15:32 15:32 15:32 WBC 10.2 RBC 4.36 Hgb 12.4 Hct 36.7 L MCV 84.1 MCH 28.4 MCHC 33.7 RDW 14.6 Plt Count 199 MPV 9.2 Neut # (Auto) 7.1 H Lymph # (Auto) 2.4 Banks # (Auto) 0.6 Eos # (Auto) 0.1 Baso # (Auto) 0.0 Absolute Nucleated RBC 0.00 Nucleated RBC % 0.0 Sodium 136 Potassium 3.3 L Chloride 100 L Carbon Dioxide 26 Anion Gap 10.0 BUN 11 Creatinine 0.8 Estimated GFR (MDRD) 84 L Glucose 114 H Calcium 9.3 Total Bilirubin 0.9 AST 51 H ALT 75 H Alkaline Phosphatase 160 H Total Protein 8.3 H Albumin 4.3 Globulin 4.0 Albumin/Globulin Ratio 1.1 Lipase 45 Serum HCG, Qual NEGATIVE Urine Color Urine Clarity Urine pH Ur Specific [place] Urine Protein Urine Glucose (UA) Urine Ketones Urine Occult Blood Urine Nitrite Urine Bilirubin Urine Urobilinogen Ur Leukocyte Esterase Ur Microscopic Review Urine Culture Comments 06/19/18 17:00 WBC RBC Hgb Hct MCV MCH MCHC RDW Plt Count MPV Neut # (Auto) Lymph # (Auto) Banks # (Auto) Eos # (Auto) Baso # (Auto) Absolute Nucleated RBC Nucleated RBC % Sodium Potassium Chloride Carbon Dioxide Anion Gap BUN Creatinine Estimated GFR (MDRD) Glucose Calcium Total Bilirubin AST ALT Alkaline Phosphatase Total Protein Albumin Globulin Albumin/Globulin Ratio Lipase Serum HCG, Qual Urine Color YELLOW Urine Clarity CLEAR Urine pH 6.5 Ur Specific [place] 1.010 Urine Protein NEGATIVE Urine Glucose (UA) NEGATIVE Urine Ketones NEGATIVE Urine Occult Blood NEGATIVE Urine Nitrite NEGATIVE Urine Bilirubin NEGATIVE Urine Urobilinogen 0.2 (NORMAL) Ur Leukocyte Esterase NEGATIVE Ur Microscopic Review NOT INDICATED Urine Culture Comments NOT INDICATED - Rads (name of study) CT abd/pelvis Radiology: Prelim report reviewed, EMP read contemporaneously, See rad report ( no acute abnormality.) PD MEDICAL DECISION MAKING - ED course Complexity details: reviewed results, re-evaluated patient (abd soft, mild tenderness. no peritoneal signs.), considered differential, d/w patient ED course: 32 year old female with continued abd pain after lap isabella last month. LFT's are decreasing. Normal CT scan. She is well appearing, non-toxic. Will trial on pain meds and follow up with her PCP. No evidence of bile leak or infection at this time. Patient counseled regarding signs and symptoms for which I believe and urgent re-evaluation would be necessary. Patient with good understanding of and agreement to plan and is comfortable going home at this time This document was made in part using voice recognition software. While efforts are made to proofread this document, sound alike and grammatical errors may occur. - Sepsis Event Vital Signs: Vital Signs - 24 hr 06/19/18 06/19/18 15:13 19:00 Temperature 36.3 C L 36.4 C L Heart Rate 74 75 Respiratory 16 16 Rate Blood Pressure 105/79 122/76 O2 Saturation 100 100 Oxygen O2 Source Room air Departure - Departure Disposition: 01 Home, Self Care Clinical Impression: Abdominal pain Qualifiers: Abdominal location: generalized Qualified Code(s): R10.84 - Generalized abdominal pain Condition: Good Instructions: ED Abdominal Pain Unkn Cause Follow-Up: Provider,Other [Primary Care Provider] - Within 1 week Prescriptions: Hyoscyamine Sulfate [Levsin-Sl] 0.125 mg SL Q4H PRN #20 tab.subl PRN Reason: Abdominal Pain oxyCODONE [Roxicodone] 5 mg PO Q4-6H PRN #10 tablet PRN Reason: Abdominal Pain Comments: Return if you worsen. Your CT scan is normal and your labs are improved. Follow up with your doctor for further care. Do not drink alcohol or drive while on narcotic pain medicine. Note that many narcotic pain relievers also contain tylenol/acetaminophen. Please ensure that your total dose of acetaminophen from all sources does not exceed 3 grams (3000mg) per day. You may constipated on this medication, take a stool softener such as "Colace" twice a day while you are on it. Also recommend a vqly-pji-lbrocmr laxative such as senna or MiraLAX any day that you do not have a bowel movement. If you received narcotic pain medication in the emergency department, do not drive or operate machinery for the next 24 hours. Discharge Date/Time: 06/19/18 19:25
[2018-06-19] MEDS ORDERED: IOPAMIDOL-300 100 ML VIAL ONE (17:43)
[2018-06-19] MEDS ORDERED: IOPAMIDOL-300 100 ML VIAL IVP ONE (18:11)
--- NOTE | 2018-06-19 18:29 | CT Report ---
Reason: diffuse abd pain Procedure Date: 06/19/2018 Accession Number: [id number] / [id number] Procedure: CT - Abdomen/Pelvis W/ CPT Code: FULL RESULT: EXAM: CT ABDOMEN AND PELVIS WITH CONTRAST. EXAM DATE: 06/19/2018 05:57 PM. CLINICAL HISTORY: Gallbladder surgery a month ago, pain and nausea constantly since. COMPARISONS: CT abdomen and pelvis 05/09/2018. TECHNIQUE: Routine helical CT imaging was performed through the abdomen and pelvis. IV contrast: 100 mL ISOVUE 300. Enteric contrast: No. Reconstructions: Coronal and sagittal. In accordance with CT protocol optimization, one or more of the following dose reduction techniques were utilized for this exam: automated exposure control, adjustment of mA and/or KV based on patient size, or use of iterative reconstructive technique. FINDINGS: Lung bases: No acute findings. Liver: Unremarkable. Gallbladder: Surgically removed. No fluid collections. Bile ducts: Unremarkable. Pancreas: Unremarkable. Spleen: Unremarkable. Adrenals: Unremarkable. Kidneys: Unremarkable. Bowel: The appendix appears normal. No acute bowel findings are seen. No free fluid or free air. Pelvis: The bladder is decompressed. Uterus is anteverted. Small bilateral adnexal varices. Vascular structures: No acute findings. Bones: No acute bone findings. IMPRESSION: 1. No acute findings. See above. RADIA
[2018-06-19 19:01] VITALS: BP 122/76
== END 2018-06-19 19:25 | disposition home or self-care (01) ==
LOC: ED 14:45
DX: R10.84 Generalized abdominal pain (principal); Z98.890 Other specified postprocedural states
CPT/HCPCS: 36415; 74177; 80053; 81003; 83690; 84703; 85025; 96374; 96375; 99283; Q9967; 81001; 87086

== ENCOUNTER 2018-08-03 10:37 | Emergency (ER) | payer OTHER ==
[2018-08-03 10:45] VITALS: BP 127/75
--- NOTE | 2018-08-03 12:41 | ED Physician Documentation ---
PD HPI HEENT - Stated complaint Stated Complaint: SOA/SORE THROAT/MORRISON/BILAT EAR PX - Chief complaint Chief Complaint: Resp - History obtained from History obtained from: Patient - History of Present Illness Timing - onset: How many days ago (3) Timing - duration: Days (3) Timing - details: Gradual onset, Still present, Intermittant Pain level max: 5 Pain level now: 0 Location: Right ear, Left ear, Sinuses, Nose, Throat Improves: Other (NOTHING) Worsens: Other (NOTHING) Associated symptoms: Fever, Congestion. No: Trismus, Unable to swallow Similar symptoms before: Has not had sx before Recently seen: Not recently seen - Additional information Additional information: Pt complaining of nasal congestion, sinus pressure, sorethroat, dry cough, tactile fever the past 3 days. States the nasal congestion makes it a little harder to breath but denies dyspnea. Denies trauma, travel or sick contacts. Denies - on Nexplant and no sex recently. 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 : None HEENT: None Psych: None Musculoskeletal: None Derm: None - Past Surgical History Past Surgical History: Yes General: Cholecystectomy 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, 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 HEENT: Tonsil/Adenoidectomy - Present Medications Home Medications: Ambulatory Orders Medication Instructions Recorded Confirmed Etonogestrel [Nexplanon] 68 mg SUBQ ONCE 05/07/18 05/10/18 Hyoscyamine Sulfate [Levsin-Sl] 0.125 mg SL Q4H PRN #20 tab.subl 06/19/18 RX: oxyCODONE [Roxicodone] 5 mg PO Q4-6H PRN #10 tablet 06/19/18 Amox/Clav 875/125 [Augmentin] 1 each PO Q12H 10 Days #20 tablet 08/03/18 Ondansetron HCl [Zofran] 4 mg PO PRN 08/03/18 Pseudoephedrine HCl [Sudafed 12 120 mg PO BID #6 tablet.er 08/03/18 Hour] - Allergies Allergies/Adverse Reactions: Allergies Allergy/AdvReac Type Severity Reaction Status Date / Time cefaclor [From [facility]] Allergy Unknown Verified 08/03/18 10:45 - Social History Does the pt smoke?: No Smoking Status: Never smoker - Immunizations Immunizations are current?: Yes PD ED PE NORMAL - Vitals Vital signs reviewed: Yes - General General: Alert and oriented X 3, No acute distress, Well developed/nourished - HEENT HEENT: PERRL, EOMI, Ears normal, Moist mucous membranes, Pharynx benign - Neck Neck: Supple, no meningeal sign - Cardiac Cardiac: RRR, No murmur - Respiratory Respiratory: No respiratory distress, Clear bilaterally - Abdomen Abdomen: Normal bowel sounds, Soft, Non tender, Non distended - Derm Derm: Normal color, Warm and dry, No rash - Extremities Extremities: No deformity - Neuro Neuro: Alert and oriented X 3 - Psych Psych: Normal mood, Normal affect Results - Vitals Vitals: Vital Signs - 24 hr 08/03/18 10:40 Temperature 35.7 C L Heart Rate 80 Respiratory 18 Rate Blood Pressure 127/75 O2 Saturation 99 Oxygen O2 Source Room air - Labs Labs: Laboratory Tests 08/03/18 10:45 Influenza A (Rapid) Negative Influenza B (Rapid) Negative PD MEDICAL DECISION MAKING - ED course Complexity details: considered differential (URI, FLU, STREP, BRONCHITIS, OM, SINUSITIS), d/w patient (Pt states has hx of sinus infection and would like antibiotic for them. Will discharge pt on Augmenting and Sudafed. ) Departure - Departure Disposition: 01 Home, Self Care Clinical Impression: Upper respiratory tract infection Qualifiers: URI type: unspecified viral URI Qualified Code(s): J06.9 - Acute upper respiratory infection, unspecified Sinusitis Qualifiers: Sinusitis location: frontal Chronicity: acute Recurrence: non-recurrent Qualified Code(s): J01.10 - Acute frontal sinusitis, unspecified Condition: Good Instructions: ED Sinusitis Abx Tx, ED Viral Syndrome Prescriptions: Amox/Clav 875/125 [Augmentin] 1 each PO Q12H 10 Days #20 tablet Pseudoephedrine HCl [Sudafed 12 Hour] 120 mg PO BID #6 tablet.er Comments: FOLLOW UP W/ YOUR PCP FOR REEVALUATION IN 1 WEEK. IF SINUSITIS PERSIST AFTER ANTIBIOTIC TREATMENT GET A REFERRAL TO AN E.N.T. DOCTOR. DRINK LOTS OF FLUIDS. EAT HEALTHY. REST BUT DO NOT STAY IN BED TOO MUCH. OTC TYLENOL OR MOTRIN FOR PAIN OR FEVER. IF WORSE RETURN TO THE E.R. Discharge Date/Time: 08/03/18 13:05
== END 2018-08-03 13:05 | disposition home or self-care (01) ==
LOC: ED 10:37
DX: J06.9 Acute upper respiratory infection, unspecified (principal); J01.10 Acute frontal sinusitis, unspecified
CPT/HCPCS: 87275; 87276; 99283

== ENCOUNTER 2019-05-11 12:04 | Emergency (ER) | payer OTHER ==
[2019-05-11 12:12] VITALS: BP 125/76
--- NOTE | 2019-05-11 12:15 | ED Physician Documentation ---
History of Present Illness - Stated complaint Stated Complaint: BILAT EYE SWELLING - Chief complaint Chief Complaint: Heent - History obtained from History obtained from: Patient - History of Present Illness Timing: Prior to arrival - Additonal information Additional information: Patient is a previously healthy 33-year-old female with known environmental allergies presenting with mild right thigh swelling extending to the nasal bridge with some erythema present but no other rash. Patient does report hives earlier that have now resolved. Patient does state this area is slightly itchy. She denies fever, nasal congestion, rhinorrhea, sore throat, eye drainage, vision changes. Patient does report worsening environmental allergies as she recently traveled to [place]. Although she feels that most of the symptoms resolved until earlier this morning. No trauma or other inciting incident. No other improving or worsening factors noted. Review of Systems Constitutional: denies: Fever Eyes: denies: Loss of vision, Decreased vision, Photophobia, Discharge Nose: denies: Rhinorrhea / runny nose, Congestion Throat: denies: Sore throat PD PAST MEDICAL HISTORY - Past Medical History Cardiovascular: None Respiratory: None Neuro: None Endocrine/Autoimmune: None GI: None DIRECTOR OF FOOD AND NUTRITION SERVICES: None : None HEENT: None Psych: None Musculoskeletal: None Derm: None - Past Surgical History Past Surgical History: Yes General: Cholecystectomy Ortho: Other /DIRECTOR OF FOOD AND NUTRITION SERVICES: section, 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 HEENT: Tonsil/Adenoidectomy - Present Medications Home Medications: Ambulatory Orders Medication Instructions Recorded Confirmed Etonogestrel [Nexplanon] 68 mg SUBQ ONCE 05/07/18 05/10/18 Hyoscyamine Sulfate [Levsin-Sl] 0.125 mg SL Q4H PRN #20 tab.subl 06/19/18 oxyCODONE [Roxicodone] 5 mg PO Q4-6H PRN #10 tablet 06/19/18 Amox/Clav 875/125 [Augmentin] 1 each PO Q12H 10 Days #20 tablet 08/03/18 Ondansetron HCl [Zofran] 4 mg PO PRN 08/03/18 Pseudoephedrine HCl [Sudafed 12 120 mg PO BID #6 tablet.er 08/03/18 Hour] predniSONE [Prednisone] 60 mg PO DAILY 5 Days tablet 05/11/19 - Allergies Allergies/Adverse Reactions: Allergies Allergy/AdvReac Type Severity Reaction Status Date / Time cefaclor [From [facility]] Allergy Unknown Verified 05/11/19 12:12 - Social History Does the pt smoke?: No Smoking Status: Never smoker - Immunizations Immunizations are current?: Yes PD ED PE NORMAL - Vitals Vital signs reviewed: Yes - General General: Alert and oriented X 3, No acute distress, Well developed/nourished - HEENT HEENT: Atraumatic, PERRL, EOMI (No nystagmus, gross visual acuity intact.), Moist mucous membranes, Pharynx benign, Other (Patient will right eye periorbital swelling without ecchymosis and slight swelling to nasal bridge with faint erythema, but no hives or other rash present.) - Neck Neck: Supple, no meningeal sign - Respiratory Respiratory: No respiratory distress - Derm Derm: Normal color, Warm and dry, No rash, Other (Except as stated above) - Extremities Extremities: No deformity, No tenderness to palpate - Neuro Neuro: Alert and oriented X 3, No motor deficit, No sensory deficit - Psych Psych: Normal mood, Normal affect Results - Vitals Vitals: Vital Signs - 24 hr 05/11/19 12:09 Temperature 36.4 C L Heart Rate 79 Respiratory 19 Rate Blood Pressure 125/76 O2 Saturation 100 Oxygen O2 Source Room air PD MEDICAL DECISION MAKING - ED course Complexity details: considered differential, d/w patient ED course: Patient presenting with periorbital edema particularly to the right eye which is likely related to known environmental allergies. Do not feel this is traumatic in nature. Do not have high suspicion for other etiologies including sinusitis, facial cellulitis or abscess, pre-or post septal cellulitis, globe injury or infection, or other complication.Do not feel patient requires imaging or invasive testing at this time. Discussed use of allergy medications, as well as steroids and other supportive cares. Advise close primary care follow-up and strict return precautions. Patient voiced understanding and is comfortable with discharge plan. Departure - Departure Disposition: 01 Home, Self Care Clinical Impression: Allergic reaction Qualifiers: Encounter type: initial encounter Qualified Code(s): T78.40XA - Allergy, unspecified, initial encounter Condition: Good Instructions: ED Allergic Reaction Local Other Follow-Up: CARLOS ALBERTO BUITRAGO MD [Primary Care Provider] - Within 3 Days Prescriptions: predniSONE [Prednisone] 60 mg PO DAILY 5 Days tablet Comments: Please continue home medications as previously instructed. Please take steroids as prescribed. May also consider adding additional allergy medicine such as Zyrtec, Claritin, Yuridia as needed to help with local reaction. Benadryl may also be helpful and can be used as instructed on the box. Please follow-up with your primary care physician in next 2 to 3 days and return to ED sooner if experience worsening symptoms or have other concerns.
== END 2019-05-11 12:45 | disposition home or self-care (01) ==
LOC: ED 12:04
DX: T78.40XA Allergy, unspecified, initial encounter (principal)
CPT/HCPCS: 99282; 99284

== ENCOUNTER 2019-10-21 21:32 | Emergency (ER) | payer OTHER ==
[2019-10-21 21:40] VITALS: BP 126/79
--- NOTE | 2019-10-22 00:38 | ED Physician Documentation ---
History of Present Illness - Stated complaint Stated Complaint: HEAD PX, COUGH, FEVER - Chief complaint Chief Complaint: Heent - History obtained from History obtained from: Patient - History of Present Illness Timing: Last night Improved by: nothing Worsened by: no ameliorating factors - Additonal information Additional information: c/o bilateral sinus congestion and headache, sore throat, bilateral ear pain. 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 INSTRUCTOR: section, 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 HEENT: Tonsil/Adenoidectomy - Present Medications Home Medications: Ambulatory Orders Medication Instructions Recorded Confirmed Etonogestrel [Nexplanon] 68 mg SUBQ ONCE 05/07/18 05/10/18 Hyoscyamine Sulfate [Levsin-Sl] 0.125 mg SL Q4H PRN #20 tab.subl 06/19/18 oxyCODONE [Roxicodone] 5 mg PO Q4-6H PRN #10 tablet 06/19/18 Amox/Clav 875/125 [Augmentin] 1 each PO Q12H 10 Days #20 tablet 08/03/18 Ondansetron HCl [Zofran] 4 mg PO PRN 08/03/18 Pseudoephedrine HCl [Sudafed 12 120 mg PO BID #6 tablet.er 08/03/18 Hour] predniSONE [Prednisone] 60 mg PO DAILY 5 Days tablet 05/11/19 Amox/Clav 875/125 [Augmentin] 1 each PO Q12H #19 tablet 10/22/19 Pseudoephedrine HCl 120 mg PO BID PRN #10 tablet.er 10/22/19 [Pseudoephedrine ER] predniSONE [Prednisone] 40 mg PO DAILY #8 tablet 10/22/19 - Allergies Allergies/Adverse Reactions: Allergies Allergy/AdvReac Type Severity Reaction Status Date / Time cefaclor [From [facility]] Allergy Unknown Verified 10/21/19 21:39 - Social History Does the pt smoke?: No Smoking Status: Never smoker - Immunizations Immunizations are current?: Yes PD ED PE NORMAL - Vitals Vital signs reviewed: Yes - General General: Alert and oriented X 3, No acute distress, Well developed/nourished - HEENT HEENT: Moist mucous membranes, Pharynx benign - Neck Neck: Supple, no meningeal sign - Respiratory Respiratory: No respiratory distress, Clear bilaterally PD ED PE EXPANDED - HEENT HEENT: R TM dull, L TM dull, Nasal congestion Results - Vitals Vitals: Vital Signs - 24 hr 10/21/19 10/22/19 21:37 01:09 Temperature 37.2 C Heart Rate 107 H 122 H Respiratory 16 18 Rate Blood Pressure 126/79 O2 Saturation 99 99 Oxygen O2 Source Room air PD MEDICAL DECISION MAKING - ED course Complexity details: reviewed old records, considered differential, d/w patient Departure - Departure Disposition: 01 Home, Self Care Clinical Impression: Sinusitis, Bronchitis Condition: Good Instructions: ED Sinusitis Abx Tx Follow-Up: CARLOS ALBERTO BUITRAGO MD [Primary Care Provider] - Prescriptions: Amox/Clav 875/125 [Augmentin] 1 each PO Q12H #19 tablet predniSONE [Prednisone] 40 mg PO DAILY #8 tablet Pseudoephedrine HCl [Pseudoephedrine ER] 120 mg PO BID PRN #10 tablet.er PRN Reason: Nasal Congestion Discharge Date/Time: 10/22/19 01:09
[2019-10-22] MEDS ORDERED: PSEUDOEPHEDRINE 30 MG TABLET PO STA (01:01)
[2019-10-22] MEDS ORDERED: AMOX/CLAV 875 MG/125 MG TABLET PO STA (01:01)
[2019-10-22] MEDS ORDERED: predniSONE 20 MG TABLET PO STA (01:02)
== END 2019-10-22 01:09 | disposition home or self-care (01) ==
LOC: ED 21:32
DX: J32.9 Chronic sinusitis, unspecified (principal); J40 Bronchitis, not specified as acute or chronic
CPT/HCPCS: 99283; A9270; J7512